=== PATIENT | female | born 1985 | race Caucasian/White ===

== ENCOUNTER 2018-05-27 07:25 | Emergency (ER) | payer SELFPAY ==
[~2018-05-27] VITALS: Ht 157.5 cm; Wt 68.0 kg
[2018-05-27 07:50] LABS: BILIRUBIN,URINE NEGATIVE (NEG); CLARITY,URINE CLEAR; COLOR,URINE YELLOW; NITRITE,URINE NEGATIVE (NEG); PH,URINE 5.5; PROTEIN,URINE NEGATIVE (NEG-TRACE); UROBILINOGEN,URINE 0.2 mg/dL (0.2 mg/dL)
[2018-05-27 07:56] LABS: SQUAMOUS EPITHELIAL CELL,UR FEW /LPF
[2018-05-27 07:57] LABS: BACTERIA,URINE FEW /HPF (0-FEW); WBC,URINE OCC /HPF (0-4)
[2018-05-27 07:58] LABS: BASO # 0.1 x10^3/uL (0.0-0.2); BASO % 0 % (0-3); EOS % 0 % (0-3); HEMATOCRIT 41.3 % (36.0-47.0); HEMOGLOBIN 14.4 g/dL (12.0-15.5); LYMPH # 1.9 x10^3/uL (1.0-4.8); LYMPH % 17 % (24-48); MEAN CORPUSCULAR HEMOGLOBIN 31 pg (25-35); MEAN CORPUSCULAR HGB CONC 35 g/dL (31-37); MEAN CORPUSCULAR VOLUME 89 fL (79-100); MONO # 0.4 x10^3/uL (0.0-1.1); MONO % 4 % (0-9); NEUT # 9.2 x10^3uL (1.8-7.7); NEUT % 79 % (31-73); PLATELET COUNT 211 x10^3/uL (140-400); RED BLOOD COUNT 4.63 x10^6/uL (3.50-5.40); RED CELL DISTRIBUTION WIDTH 13.2 % (11.5-14.5); WHITE BLOOD COUNT 11.7 x10^3/uL (4.0-11.0)
[2018-05-27 08:19] LABS: PREG TEST PT QUAL NEGATIVE (NEG)
--- NOTE | 2018-05-27 08:19 | PHYS DOC ---
Past Medical History Past Medical History: Anxiety, Other Additional Past Medical Histor: HPV, interstitial bladder,METHADONE [place] Past Surgical History: Hysterectomy, Tubal ligation Additional Past Surgical Histo: Laparascopy Alcohol Use: Rarely Drug Use: None Adult General Chief Complaint Chief Complaint: ABDOMINAL PAIN HPI HPI 32-year-old female presenting the emergency room today with upper abdominal pain that is nonradiating. It is sharp moderate nonmigratory. It started around 2 AM. Prior to this she was feeling normal. It is associated with nausea without vomiting. She took Gas-X without any relief. Last bowel movement was yesterday. She reports flatus. She has a history of a partial hysterectomy. Review of systems is negative for chest pain shortness of breath vomiting. She denies fevers or chills. All other review of systems is negative unless otherwise noted in history of present illness. ED course: 32-year-old female presenting with upper abdominal pain. Vitals are unremarkable. Afebrile with normal heart rate. Well-appearing on examination. Abdomen is soft nontender nondistended. Negative McBurney's point. Negative Quiñonez sign. The remainder the examination is unremarkable. Blood work sent along with CT abdomen pelvis ordered. Blood work unremarkable. CT of the abdomen pelvis is negative. On reexamination her abdomen is soft and nontender. Negative McBurney's point. We'll discharge patient for repeat abdominal exam tomorrow with her PCP.The patient has been examined and was not found to have an emergency medical condition. The patient was then discharged home in stable condition to follow up with their primary care physician over the next 2-3 days. They were to return if their symptoms worsened or if they were concerned for any reason. They were also instructed to return to the emergency department if they were unable to get the recommended and appropriate follow- up. [id number] discharge instructions and return precautions were given. Patient's questions were answered to their satisfaction. Patient is comfortable with plan. Review of Systems Review of Systems SEE ABOVE. Current Medications Current Medications Current Medications Medications (Trade) Dose Ordered Sig/Danny Start Time Stop Time Status Last Admin Dose Admin Fentanyl Citrate (Fentanyl 2ml Vial) 50 mcg PRN Q30MIN PRN 05/27/18 08:45 05/27/18 09:10 50 MCG Info (CONTRAST GIVEN -- Rx MONITORING) 1 each PRN DAILY PRN 05/27/18 08:45 05/29/18 08:44 Iohexol (Omnipaque 300 Mg/ml) 75 ml 1X ONCE 05/27/18 08:30 05/27/18 08:31 DC 05/27/18 08:56 75 ML Ondansetron HCl (Zofran) 4 mg 1X ONCE 05/27/18 09:00 05/27/18 09:01 DC 05/27/18 09:10 4 MG Sodium Chloride 1,000 ml @ 1,000 mls/hr Q1H 05/27/18 08:43 05/27/18 09:42 05/27/18 09:09 1,000 MLS/HR Allergies Allergies Allergies Coded Allergies Type Severity Reaction Last Updated Verified No Known Drug Allergies 05/27/18 No Physical Exam Physical Exam SEE ABOVE Constitutional: Well developed, well nourished, no acute distress, non-toxic appearance. [] HENT: Normocephalic, atraumatic, bilateral external ears normal, oropharynx moist, no oral exudates, nose normal. [] Eyes: PERRLA, EOMI, conjunctiva normal, no discharge. [] Neck: Normal range of motion, no tenderness, supple, no stridor. [] Cardiovascular:Heart rate regular rhythm, no murmur [] Lungs & Thorax: Bilateral breath sounds clear to auscultation [] Abdomen: Bowel sounds normal, soft, no tenderness, no masses, no pulsatile masses. [] Skin: Warm, dry, no erythema, no rash. [] Back: No tenderness, no CVA tenderness. [] Extremities: No tenderness, no cyanosis, no clubbing, ROM intact, no edema. [] Neurologic: Alert and oriented X 3, normal motor function, normal sensory function, no focal deficits noted. [] Psychologic: Affect normal, judgement normal, mood normal. [] Current Patient Data Vital Signs Vital Signs Date Time Temp Pulse Resp B/P (MAP) Pulse Ox O2 Delivery O2 Flow Rate FiO2 05/27/18 07:30 98.6 77 18 121/78 (92) 99 Room Air 98.6 Lab Values Laboratory Tests Test 05/27/18 07:35 05/27/18 07:45 Urine Collection Type Void Urine Color Yellow Urine Clarity Clear Urine pH 5.5 Urine Specific [place] 1.025 Urine Protein Negative mg/dL (NEG-TRACE) Urine Glucose (UA) Negative mg/dL (NEG) Urine Ketones (Stick) Negative mg/dL (NEG) Urine Blood Small (NEG) Urine Nitrite Negative (NEG) Urine Bilirubin Negative (NEG) Urine Urobilinogen Dipstick 0.2 mg/dL (0.2 mg/dL) Urine Leukocyte Esterase Negative (NEG) Urine RBC 3-5 /HPF (0-2) Urine WBC Occ /HPF (0-4) Urine Squamous Epithelial Cells Few /LPF Urine Bacteria Few /HPF (0-FEW) Urine Mucus Mod /LPF White Blood Count 11.7 x10^3/uL (4.0-11.0) H Red Blood Count 4.63 x10^6/uL (3.50-5.40) Hemoglobin 14.4 g/dL (12.0-15.5) Hematocrit 41.3 % (36.0-47.0) Mean Corpuscular Volume 89 fL (79-100) Mean Corpuscular Hemoglobin 31 pg (25-35) Mean Corpuscular Hemoglobin Concent 35 g/dL (31-37) Red Cell Distribution Width 13.2 % (11.5-14.5) Platelet Count 211 x10^3/uL (140-400) Neutrophils (%) (Auto) 79 % (31-73) H Lymphocytes (%) (Auto) 17 % (24-48) L Monocytes (%) (Auto) 4 % (0-9) Eosinophils (%) (Auto) 0 % (0-3) Basophils (%) (Auto) 0 % (0-3) Neutrophils # (Auto) 9.2 x10^3uL (1.8-7.7) H Lymphocytes # (Auto) 1.9 x10^3/uL (1.0-4.8) Monocytes # (Auto) 0.4 x10^3/uL (0.0-1.1) Eosinophils # (Auto) 0.0 x10^3/uL (0.0-0.7) Basophils # (Auto) 0.1 x10^3/uL (0.0-0.2) Sodium Level 138 mmol/L (136-145) Potassium Level 4.3 mmol/L (3.5-5.1) Chloride Level 105 mmol/L (98-107) Carbon Dioxide Level 25 mmol/L (21-32) Anion Gap 8 (6-14) Blood Urea Nitrogen 24 mg/dL (7-20) H Creatinine 0.9 mg/dL (0.6-1.0) Estimated GFR (Cockcroft-Gault) 72.1 BUN/Creatinine Ratio 27 (6-20) H Glucose Level 113 mg/dL (70-99) H Calcium Level 8.8 mg/dL (8.5-10.1) Total Bilirubin 0.2 mg/dL (0.2-1.0) Aspartate Amino Transferase (AST) 13 U/L (15-37) L Alanine Aminotransferase (ALT) 25 U/L (14-59) Alkaline Phosphatase 90 U/L (46-116) Total Protein 7.5 g/dL (6.4-8.2) Albumin 3.8 g/dL (3.4-5.0) Albumin/Globulin Ratio 1.0 (1.0-1.7) Lipase 144 U/L (73-393) Serum Test, Qualitative Negative (NEG) Laboratory Tests 05/27/18 07:45 Laboratory Tests 05/27/18 07:45 EKG EKG [] Radiology/Procedures Radiology/Procedures [] Course & Med Decision Making Course & Med Decision Making Pertinent Labs and Imaging studies reviewed. (See chart for details) [] Dragon Disclaimer Dragon Disclaimer This electronic medical record was generated, in whole or in part, using a voice recognition dictation system. Departure Departure Impression: Primary Impression: Abdominal pain Disposition: HOME, SELF-CARE Condition: IMPROVED Referrals: MARITZA DYKES MD (PCP) Patient Instructions: Abdominal Pain, Women Additional Instructions: Thank you for allowing us to participate in your care today. Return to the emergency department you have any new or worsening symptoms, or if you are concerned for any reason. Return to emergency department if you have any new or concerning symptoms including but not limited to fever, chills, nausea, vomiting, intractable pain, any new rashes, chest pain, shortness of air , uncontrolled bleeding, difficulty breathing, and/or vision loss. Follow up with your primary care physician within 3 days. Call your Primary Doctor tomorrow and inform them of your visit today. If you do not have a primary care provider we are happy to provide you with a list of our primary care providers contact information. This condition should be evaluated by your primary care physician and any recommended consulting services for continued management within 2-3 days after discharge. If at any time, you are having difficulty getting into your primary care doctor or a specialist, return to the emergency department. Scripts No Active Prescriptions or Reported Meds CASSIUS GAO MD May 27, 2018 08:18
[2018-05-27 08:28] LABS: CALCIUM 8.8 mg/dL (8.5-10.1); CREATININE 0.9 mg/dL (0.6-1.0); GFR 72.1; POTASSIUM 4.3 mmol/L (3.5-5.1)
[2018-05-27] MEDS ORDERED: IOHEXOL 300 MG/ML 100ML VIAL. IV ONE (08:30)
[2018-05-27 08:34] LABS: ALBUMIN 3.8 g/dL (3.4-5.0); TOTAL BILIRUBIN 0.2 mg/dL (0.2-1.0); TOTAL PROTEIN 7.5 g/dL (6.4-8.2)
[2018-05-27] MEDS ORDERED: IV NORMAL SALINE 1000ML BAG 1,000 ML IV SCH (08:43)
[2018-05-27] MEDS ORDERED: fentaNYL PF VIAL 100 MCG/2 ML VIAL IV PRN (08:45)
[2018-05-27] MEDS ORDERED: CONTRAST GIVEN. MC PRN (08:45)
[2018-05-27] MEDS ORDERED: ONDANSETRON PF 4 MG/2 ML VIAL. IV ONE (09:00)
--- NOTE | 2018-05-27 09:16 | RAD ---
CT of the abdomen and pelvis with contrast, 05/27/2018: HISTORY: Upper abdominal pain and nausea Multidetector CT imaging was performed following an IV bolus injection of iodinated contrast material. No oral contrast material was administered for this study. No hepatic abnormality is detected. The gallbladder is elongated measuring 15 cm in craniocaudad extent. It measures 3.5 cm in greatest width and AP dimension. No dense gallstones or pericholecystic edema is seen. The pancreas is unremarkable. The spleen is of normal size. No renal abnormality is detected. No abdominal or pelvic adenopathy is seen. The uterus is surgically absent. The bowel loops are not dilated. A portion of the appendix is visualized and it is unremarkable. No pericecal inflammatory process is seen. No free air or free fluid is evident in the abdomen or pelvis. IMPRESSION: No acute abdominal or pelvic abnormality is detected. PQRS Compliance Statement: One or more of the following individualized dose reduction techniques were utilized for this examination: 1. Automated exposure control 2. Adjustment of the mA and/or kV according to patient size 3. Use of iterative reconstruction technique Electronically signed by: Nick Amaya MD (05/27/2018 9:12 AM) [facility]
[2018-05-27 09:45] VITALS: BP 131/82
== END 2018-05-27 10:13 | disposition home or self-care (01) ==
LOC: ER 07:25
DX: R10.10 Upper abdominal pain, unspecified (principal); R11.0 Nausea; F41.9 Anxiety disorder, unspecified; Z90.710 Acquired absence of both cervix and uterus; Z98.51 Tubal ligation status
CPT/HCPCS: 36415; 74177; 80053; 81001; 83690; 84703; 85025; 96374; 96375; 99284; J2405; J3010; J7030; Q9967

== ENCOUNTER 2018-09-12 19:55 | Emergency (ER) | payer OTHER ==
[~2018-09-12] VITALS: Ht 157.5 cm; Wt 68.0 kg
[2018-09-12 19:55] VITALS: BP 105/59
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
[2018-09-12] MEDS ORDERED: ALPRAZolam 0.5 MG TABLET ONE (21:03)
[2018-09-12] MEDS ORDERED: ALPRAZolam 0.5 MG TABLET PO ONE (21:15)
== END 2018-09-12 21:08 | disposition home or self-care (01) ==
LOC: EEVIPCON 19:55 → ER 19:55
DX: T74.21XA Adult sexual abuse, confirmed, initial encounter (principal); S60.411A Abrasion of left index finger, initial encounter; F41.9 Anxiety disorder, unspecified; Z90.710 Acquired absence of both cervix and uterus; Z98.51 Tubal ligation status; Y93.89 Activity, other specified; Y92.89 Other specified places as the place of occurrence of the external cause; Y99.8 Other external cause status
CPT/HCPCS: 99282; 99285

== ENCOUNTER 2018-10-18 05:42 | Inpatient (IN) | payer SELFPAY ==
[2018-10-18] VITALS (9 sets, daily range): BP systolic 93–126; BP diastolic 57–78
[~2018-10-18] VITALS: Ht 165.1 cm; Wt 68.0 kg
--- NOTE | 2018-10-18 06:26 | PHYS DOC ---
Past Medical History Past Medical History: Anxiety, Other Additional Past Medical Histor: HPV, interstitial bladder,METHADONE [place] Past Surgical History: Hysterectomy, Tubal ligation Additional Past Surgical Histo: Laparascopy Smoking: Cigarettes Alcohol Use: Rarely Drug Use: None Adult General Chief Complaint Chief Complaint: ABDOMINAL PAIN HPI HPI Patient is a 33 year old female in who brought in by EMS because of abdominal pain. Patient states she woke at 3 AM because of right sided abdominal pain as a sharp pain with radiation to upper chest and back. Patient rated her pain 10 over 10 and denies nausea and vomiting, diarrhea and constipation, fever and chills, urinary symptom. Patient states she had the same pain in other locations and was evaluated in this emergency room and was told she had gallbladder problems and needs to to follow-up with her primary care physician who treated her with hydrocodone. Patient had hysterectomy. Review of Systems Review of Systems Constitutional: Denies fever or chills [] Eyes: Denies change in visual acuity, redness, or eye pain [] HENT: Denies nasal congestion or sore throat [] Respiratory: Denies cough or shortness of breath [] Cardiovascular: No additional information not addressed in HPI [] GI: Reports abdominal pain, denies nausea, vomiting, bloody stools or diarrhea [ ] : Denies dysuria or hematuria [] Musculoskeletal: Denies back pain or joint pain [] Integument: Denies rash or skin lesions [] Neurologic: Denies headache, focal weakness or sensory changes [] Endocrine: Denies polyuria or polydipsia [] All other systems were reviewed and found to be within normal limits, except as documented in this note. Current Medications Current Medications Allergies Allergies Allergies Coded Allergies Type Severity Reaction Last Updated Verified No Known Drug Allergies 05/27/18 No Physical Exam Physical Exam Constitutional: Well nourished, moderate distress, non-toxic appearance. [] HENT: Normocephalic, atraumatic, oropharynx moist. Eyes: PERRLA, EOMI, conjunctiva normal, no discharge. [] Neck: Normal range of motion, no tenderness, supple, no stridor. [] Cardiovascular:Heart rate regular rhythm, no murmur [] Lungs & Thorax: Bilateral breath sounds clear to auscultation [] Abdomen: Bowel sounds normal, soft, positive Quiñonez's sign, negative McBurney sign, no tenderness, no masses, no pulsatile masses. [] Skin: Warm, dry, no erythema, no rash. [] Back: No tenderness, no CVA tenderness. [] Extremities: No tenderness, no cyanosis, no clubbing, ROM intact, no edema. [] Neurologic: Alert and oriented X 3, normal motor function, normal sensory function, no focal deficits noted. [] Psychologic: Affect anxious, judgement normal, mood normal. [] Current Patient Data Vital Signs Vital Signs Date Time Temp Pulse Resp B/P (MAP) Pulse Ox O2 Delivery O2 Flow Rate FiO2 10/18/18 06:30 54 18 128/86 (100) 99 Room Air 10/18/18 05:44 98.3 98.3 Lab Values Laboratory Tests Test 10/18/18 06:42 White Blood Count 7.9 x10^3/uL (4.0-11.0) Red Blood Count 4.14 x10^6/uL (3.50-5.40) Hemoglobin 12.5 g/dL (12.0-15.5) Hematocrit 37.5 % (36.0-47.0) Mean Corpuscular Volume 91 fL (79-100) Mean Corpuscular Hemoglobin 30 pg (25-35) Mean Corpuscular Hemoglobin Concent 33 g/dL (31-37) Red Cell Distribution Width 14.1 % (11.5-14.5) Platelet Count 172 x10^3/uL (140-400) Neutrophils (%) (Auto) 54 % (31-73) Lymphocytes (%) (Auto) 36 % (24-48) Monocytes (%) (Auto) 8 % (0-9) Eosinophils (%) (Auto) 1 % (0-3) Basophils (%) (Auto) 1 % (0-3) Neutrophils # (Auto) 4.3 x10^3uL (1.8-7.7) Lymphocytes # (Auto) 2.8 x10^3/uL (1.0-4.8) Monocytes # (Auto) 0.6 x10^3/uL (0.0-1.1) Eosinophils # (Auto) 0.1 x10^3/uL (0.0-0.7) Basophils # (Auto) 0.1 x10^3/uL (0.0-0.2) Sodium Level 146 mmol/L (136-145) H Potassium Level 3.4 mmol/L (3.5-5.1) L Chloride Level 109 mmol/L (98-107) H Carbon Dioxide Level 28 mmol/L (21-32) Anion Gap 9 (6-14) Blood Urea Nitrogen 13 mg/dL (7-20) Creatinine 0.6 mg/dL (0.6-1.0) Estimated GFR (Cockcroft-Gault) 114.4 BUN/Creatinine Ratio 22 (6-20) H Glucose Level 123 mg/dL (70-99) H Calcium Level 8.4 mg/dL (8.5-10.1) L Total Bilirubin 0.2 mg/dL (0.2-1.0) Aspartate Amino Transferase (AST) 21 U/L (15-37) Alanine Aminotransferase (ALT) 26 U/L (14-59) Alkaline Phosphatase 70 U/L (46-116) Total Protein 6.3 g/dL (6.4-8.2) L Albumin 3.4 g/dL (3.4-5.0) Albumin/Globulin Ratio 1.2 (1.0-1.7) Lipase 167 U/L (73-393) Ethyl Alcohol Level < 10 mg/dL (0-10) Laboratory Tests 10/18/18 06:42 Laboratory Tests 10/18/18 06:42 EKG EKG [] Radiology/Procedures Radiology/Procedures [facility] [address] [place] [address] IMAGING REPORT Signed PATIENT: TORY POLLACK ACCOUNT: [id number] : 1985 LOCATION: ER AGE: 33 SEX: F EXAM STATUS: REG ER ORD. PHYSICIAN: DIANA MONDRAGON MD REASON: upper abdominal pain PROCEDURE: ABDOMEN LTD Limited abdomen ultrasound HISTORY: Right upper quadrant abdominal pain. FINDINGS: Pancreas, upper abdominal aorta and IVC are normal. Normal liver echogenicity. No liver mass or nodularity documented. There are gallstones, mild distention of the gallbladder with a diameter 3.3 cm, gallbladder wall thickening measuring 4.5 mm in thickness, and positive sonographic Quiñonez sign consistent with cholecystitis. Mild dilation of the common bile duct with a diameter 7 mm, mild distention due to choledocholithiasis is not excluded. Right renal length 12.2 cm. No evidence of right renal mass or hydronephrosis. Spleen and left kidney were not evaluated. IMPRESSION: Imaging features suggestive of acute calculus cholecystitis. Mild distention of the common bile duct could indicate low-grade ductal obstruction, choledocholithiasis as an etiology of obstruction is possible. Electronically signed by: Jelly Hale MD (10/18/2018 6:45 AM) [facility] DICTATED and SIGNED BY: JELLY HALE MD DATE: 10/18/18 6336 Course & Med Decision Making Course & Med Decision Making Pertinent Labs and Imaging studies reviewed. (See chart for details) Evaluation of patient in ER showed 33-year-old female patient with complaining of right upper quadrant pain since 3 AM today as a constant and severe pain. Patient had positive Quiñonez's sign. Gallbladder ultrasound showed acute cholecystitis. Patient was seen in this emergency room in May 2018 with the same pain and had unremarkable CT of abdomen and pelvis. Patient treated with IV fluid, Toradol, fentanyl and Zofran and felt better. On-call surgeon Dr. Arellano was consulted at 0745 and recommended to keep patient NPO and start Zosyn. Patient requiring admission for further evaluation and treatment. Discussed with Dr. Bruce who is in agreement with admission. Discussed findings and plan with patient and family, who acknowledge understanding and agreement. Dragon Disclaimer Dragon Disclaimer This electronic medical record was generated, in whole or in part, using a voice recognition dictation system. Departure Departure Impression: Primary Impression: Acute cholecystitis Disposition: ADMITTED INPATIENT (at 0711) Admitting Physician: Other (Dr Bruce accepted admission at 0710) Condition: IMPROVED Referrals: MARITZA DYKES MD (PCP) Scripts No Active Prescriptions or Reported Meds DIANA MONDRAGON MD Oct 18, 2018 06:25
--- NOTE | 2018-10-18 06:48 | RAD ---
Limited abdomen ultrasound HISTORY: Right upper quadrant abdominal pain. FINDINGS: Pancreas, upper abdominal aorta and IVC are normal. Normal liver echogenicity. No liver mass or nodularity documented. There are gallstones, mild distention of the gallbladder with a diameter 3.3 cm, gallbladder wall thickening measuring 4.5 mm in thickness, and positive sonographic Quiñonez sign consistent with cholecystitis. Mild dilation of the common bile duct with a diameter 7 mm, mild distention due to choledocholithiasis is not excluded. Right renal length 12.2 cm. No evidence of right renal mass or hydronephrosis. Spleen and left kidney were not evaluated. IMPRESSION: Imaging features suggestive of acute calculus cholecystitis. Mild distention of the common bile duct could indicate low-grade ductal obstruction, choledocholithiasis as an etiology of obstruction is possible. Electronically signed by: Clayton Hale MD (10/18/2018 6:45 AM) [facility]
[2018-10-18 06:52] LABS: BASO # 0.1 x10^3/uL (0.0-0.2); BASO % 1 % (0-3); EOS # 0.1 x10^3/uL (0.0-0.7); EOS % 1 % (0-3); HEMATOCRIT 37.5 % (36.0-47.0); HEMOGLOBIN 12.5 g/dL (12.0-15.5); LYMPH # 2.8 x10^3/uL (1.0-4.8); LYMPH % 36 % (24-48); MEAN CORPUSCULAR HEMOGLOBIN 30 pg (25-35); MEAN CORPUSCULAR HGB CONC 33 g/dL (31-37); MEAN CORPUSCULAR VOLUME 91 fL (79-100); MONO # 0.6 x10^3/uL (0.0-1.1); MONO % 8 % (0-9); NEUT # 4.3 x10^3uL (1.8-7.7); NEUT % 54 % (31-73); PLATELET COUNT 172 x10^3/uL (140-400); RED BLOOD COUNT 4.14 x10^6/uL (3.50-5.40); RED CELL DISTRIBUTION WIDTH 14.1 % (11.5-14.5); WHITE BLOOD COUNT 7.9 x10^3/uL (4.0-11.0)
[2018-10-18] MEDS ORDERED: ONDANSETRON PF 4 MG/2 ML VIAL. IV ONE (07:00)
[2018-10-18] MEDS ORDERED: KETOROLAC 30 MG/ML VIAL. IV ONE (07:00)
[2018-10-18] MEDS ORDERED: fentaNYL PF VIAL 100 MCG/2 ML VIAL IV ONE (07:00)
[2018-10-18] MEDS ORDERED: IV NORMAL SALINE 1000ML BAG 1,000 ML IV SCH (07:00)
[2018-10-18 07:11] LABS: CALCIUM 8.4 mg/dL (8.5-10.1); CREATININE 0.6 mg/dL (0.6-1.0); GFR 114.4; POTASSIUM 3.4 mmol/L (3.5-5.1)
[2018-10-18 07:16] LABS: ALBUMIN 3.4 g/dL (3.4-5.0); ALBUMIN/GLOBULIN RATIO 1.2 (1.0-1.7); TOTAL BILIRUBIN 0.2 mg/dL (0.2-1.0); TOTAL PROTEIN 6.3 g/dL (6.4-8.2)
--- NOTE | 2018-10-18 07:26 | PDOC1 ---
History and Physical Date of Admission Date of Admission DATE: 10/18/18 TIME: 07:25 Identification/Chief Complaint Chief Complaint Abdominal Pain Source Source: Patient History of Present Illness History of Present Illness Patient is a 33 year old female in who brought in by EMS because of abdominal pain. Patient states she woke at 3 AM because of right sided abdominal pain as a sharp pain with radiation to upper chest and back. Patient rated her pain 10 over 10 and denies nausea and vomiting, diarrhea and constipation, fever and chills, urinary symptom. Patient states she had the same pain in other locations and was told she had gallbladder problems to follow-up with her primary care physician who treated her with hydrocodone. Patient had tubal ligation previously. K of 3.4 and elevated glucose noted. No leukocytosis, no recent travel, no problems with bleeding, clots or prior problems with anesthesia. Has 4 children at home Past Medical History Cardiovascular: No pertinent hx Pulmonary: No pertinent hx GI: No pertinent hx Heme/Onc: No pertinent hx Hepatobiliary: No pertinent hx Psych: No pertinent hx Rheumatologic: No pertinent hx Infectious disease: No pertinent hx ENT: No pertinent hx Renal/: No pertinent hx Endocrine: No pertinent hx Dermatology: No pertinent hx Past Surgical History Past Surgical History: Family History Family History: Hypertension Social History Smoke: No ALCOHOL: rare Drugs: None Current Medications Current Medications Current Medications Sodium Chloride 1,000 ml @ 1,000 mls/hr Q1H IV Last administered on 10/18/18at 06:46; Start 10/18/18 at 07:00; Stop 10/18/18 at 07:59 Ketorolac Tromethamine (Toradol 30mg Vial) 30 mg 1X ONCE IV Last administered on 10/18/18at 06:45; Start 10/18/18 at 07:00; Stop 10/18/18 at 07:01; Status DC Fentanyl Citrate (Fentanyl 2ml Vial) 50 mcg 1X ONCE IV Last administered on at 07:21; Start 10/18/18 at 07:00; Stop 10/18/18 at 07:01; Status DC Ondansetron HCl (Zofran) 4 mg 1X ONCE IV Last administered on 10/18/18at 07:17 ; Start 10/18/18 at 07:00; Stop 10/18/18 at 07:01; Status DC Active Scripts Active No Active Prescriptions or Reported Medications Allergies Allergies: Coded Allergies: No Known Drug Allergies (Unverified , 05/27/18) ROS General: YES: Fatigue, Malaise; No: Chills, Night Sweats, Appetite, Other PSYCHOLOGICAL ROS: No: Anxiety, Behavioral Disorder, Concentration difficultie , Decreased libido, Depression, Disorientation, Hallucinations, Hostility, Irritablity, Memory difficulties, Mood Swings, Obsessive thoughts, Physical abuse, Sexual abuse, Sleep disturbances, Suicidal ideation, Other Eyes: No Blurry vision, No Decreased vision, No Double vision, No Dry eyes, No Excessive tearing, No Eye Pain, No Itchy Eyes, No Loss of vision, No Photophobia , No Scotomata, No Uses contacts, No Uses glasses, No Other HEENT: No: Heacaches, Visual Changes, Hearing change, Nasal congestion, Nasal discharge, Oral lesions, Sinus pain, Sore Throat, Epistaxis, Sneezing, Snoring, Tinnitus, Vertigo, Vocal changes, Other ALLERGY AND IMMUNOLOGY: No: Hives, Insect Bite Sensitivity, Itchy/Watery Eyes, Nasal Congestion, Post Nasal Drip, Seasonal Allergies, Other Hematological and Lymphatic: No: Bleeding Problems, Blood Clots, Blood Transfusions, Brusing, Night Sweats, Pallor, Swollen Lymph Nodes, Other ENDOCRINE: No: Breast Changes, Galactorrhea, Hair Pattern Changes, Hot Flashes , Malaise/lethargy, Mood Swings, Palpitations, Polydipsia/polyuria, Skin Changes , Temperature Intolerance, Unexpected Weight Changes, Other Breast: No New/Changing Breast Lumps, No Nipple changes, No Nipple discharge, No Other Respiratory: No: Cough, Hemoptysis, Orthopnea, Pleuritic Pain, Shortness of breath, SOB with excertion, Sputum Changes, Stridor, Tachypnea, Wheezing, Other Cardiovascular: No Chest Pain, No Palpitations, No Orthopnea, No Paroxysmal Noc. Dyspnea, No Edema, No Lt Headedness, No Other Gastrointestinal: No Nausea, No Vomiting, No Abdominal Pain, No Diarrhea, No Constipation, No Melena, No Hematochezia, No Other Genitourinary: No Dysuria, No Frequency, No Incontinence, No Hematuria, No Retention, No Discharge, No Urgency, No Pain, No Flank Pain, No Other, No , No , No , No , No , No , No Musculoskeletal: No Gait Disturbance, No Joint Pain, No Joint Stiffness, No Joint Swelling, No Muscle Pain, No Muscular Weakness, No Pain In:, No Swelling In:, No Other Neurological: No Behavorial Changes, No Bowel/Bladder ControlChng, No Confusion , No Dizziness, No Gait Disturbance, No Headaches, No Impaired Coord/balance, No Memory Loss, No Numbness/Tingling, No Seizures, No Speech Problems, No Tremors, No Visual Changes, No Weakness, No Other Skin: No Dry Skin, No Eczema, No Hair Changes, No Lumps, No Mole Changes, No Mottling, No Nail Changes, No Pruritus, No Rash, No Skin Lesion Changes, No Other, No Acne Physical Exam General: Alert, Oriented X3, Cooperative, No acute distress HEENT: Atraumatic, PERRLA, EOMI, Mucous membr. moist/pink Lungs: Clear to auscultation, Normal air movement Heart: S1S2, RRR, no gallops, no murmurs Abdomen: Normal bowel sounds, Soft, No hepatosplenomegaly, No masses, Other ( RUQ tender) Extremities: No clubbing, No cyanosis, No edema, Normal pulses, No tenderness/ swelling Skin: No rashes, No breakdown, No significant lesion Neuro: Normal gait, Normal speech, Strength at 5/5 X4 ext, Normal tone, Sensation intact, Cranial nerves 3-12 NL, Reflexes 2+ Psych/Mental Status: Mental status NL, Mood NL Vitals Vitals Vital Signs Date Time Temp Pulse Resp B/P (MAP) Pulse Ox O2 Delivery O2 Flow Rate FiO2 10/18/18 07:21 18 100 Room Air 10/18/18 05:44 98.3 58 136/77 (96) 98.3 Labs Labs Laboratory Tests Test 10/18/18 06:42 White Blood Count 7.9 x10^3/uL (4.0-11.0) Red Blood Count 4.14 x10^6/uL (3.50-5.40) Hemoglobin 12.5 g/dL (12.0-15.5) Hematocrit 37.5 % (36.0-47.0) Mean Corpuscular Volume 91 fL (79-100) Mean Corpuscular Hemoglobin 30 pg (25-35) Mean Corpuscular Hemoglobin Concent 33 g/dL (31-37) Red Cell Distribution Width 14.1 % (11.5-14.5) Platelet Count 172 x10^3/uL (140-400) Neutrophils (%) (Auto) 54 % (31-73) Lymphocytes (%) (Auto) 36 % (24-48) Monocytes (%) (Auto) 8 % (0-9) Eosinophils (%) (Auto) 1 % (0-3) Basophils (%) (Auto) 1 % (0-3) Neutrophils # (Auto) 4.3 x10^3uL (1.8-7.7) Lymphocytes # (Auto) 2.8 x10^3/uL (1.0-4.8) Monocytes # (Auto) 0.6 x10^3/uL (0.0-1.1) Eosinophils # (Auto) 0.1 x10^3/uL (0.0-0.7) Basophils # (Auto) 0.1 x10^3/uL (0.0-0.2) Sodium Level 146 mmol/L (136-145) Potassium Level 3.4 mmol/L (3.5-5.1) Chloride Level 109 mmol/L (98-107) Carbon Dioxide Level 28 mmol/L (21-32) Anion Gap 9 (6-14) Blood Urea Nitrogen 13 mg/dL (7-20) Creatinine 0.6 mg/dL (0.6-1.0) Estimated GFR (Cockcroft-Gault) 114.4 BUN/Creatinine Ratio 22 (6-20) Glucose Level 123 mg/dL (70-99) Calcium Level 8.4 mg/dL (8.5-10.1) Total Bilirubin 0.2 mg/dL (0.2-1.0) Aspartate Amino Transf (AST/SGOT) 21 U/L (15-37) Alanine Aminotransferase (ALT/SGPT) 26 U/L (14-59) Alkaline Phosphatase 70 U/L (46-116) Total Protein 6.3 g/dL (6.4-8.2) Albumin 3.4 g/dL (3.4-5.0) Albumin/Globulin Ratio 1.2 (1.0-1.7) Lipase 167 U/L (73-393) Ethyl Alcohol Level < 10 mg/dL (0-10) Laboratory Tests Test 10/18/18 06:42 White Blood Count 7.9 x10^3/uL (4.0-11.0) Red Blood Count 4.14 x10^6/uL (3.50-5.40) Hemoglobin 12.5 g/dL (12.0-15.5) Hematocrit 37.5 % (36.0-47.0) Mean Corpuscular Volume 91 fL (79-100) Mean Corpuscular Hemoglobin 30 pg (25-35) Mean Corpuscular Hemoglobin Concent 33 g/dL (31-37) Red Cell Distribution Width 14.1 % (11.5-14.5) Platelet Count 172 x10^3/uL (140-400) Neutrophils (%) (Auto) 54 % (31-73) Lymphocytes (%) (Auto) 36 % (24-48) Monocytes (%) (Auto) 8 % (0-9) Eosinophils (%) (Auto) 1 % (0-3) Basophils (%) (Auto) 1 % (0-3) Neutrophils # (Auto) 4.3 x10^3uL (1.8-7.7) Lymphocytes # (Auto) 2.8 x10^3/uL (1.0-4.8) Monocytes # (Auto) 0.6 x10^3/uL (0.0-1.1) Eosinophils # (Auto) 0.1 x10^3/uL (0.0-0.7) Basophils # (Auto) 0.1 x10^3/uL (0.0-0.2) Sodium Level 146 mmol/L (136-145) Potassium Level 3.4 mmol/L (3.5-5.1) Chloride Level 109 mmol/L (98-107) Carbon Dioxide Level 28 mmol/L (21-32) Anion Gap 9 (6-14) Blood Urea Nitrogen 13 mg/dL (7-20) Creatinine 0.6 mg/dL (0.6-1.0) Estimated GFR (Cockcroft-Gault) 114.4 BUN/Creatinine Ratio 22 (6-20) Glucose Level 123 mg/dL (70-99) Calcium Level 8.4 mg/dL (8.5-10.1) Total Bilirubin 0.2 mg/dL (0.2-1.0) Aspartate Amino Transf (AST/SGOT) 21 U/L (15-37) Alanine Aminotransferase (ALT/SGPT) 26 U/L (14-59) Alkaline Phosphatase 70 U/L (46-116) Total Protein 6.3 g/dL (6.4-8.2) Albumin 3.4 g/dL (3.4-5.0) Albumin/Globulin Ratio 1.2 (1.0-1.7) Lipase 167 U/L (73-393) Ethyl Alcohol Level < 10 mg/dL (0-10) Images Images RUQ US - Imaging features suggestive of acute calculus cholecystitis. Mild distention of the common bile duct could indicate low-grade ductal obstruction, choledocholithiasis as an etiology of obstruction is possible. VTE Prophylaxis Ordered VTE Prophylaxis Devices: Yes VTE Pharmacological Prophylaxi: No Assessment/Plan Assessment/Plan A/P: RUQ pain - likely cholecystitis confirmed on US. Zosyn x1, and no further testing prior to surgery. Surgery aware, likely to OR today Hypokalemia - will replace IV FEN - NPO PPX - SCDs FULL CODE Inpatient for acute cholecystitis. No further testing for low cardiac risk for surgery today SHARONA RAYMUNDO MD Oct 18, 2018 07:26
[2018-10-18] MEDS ORDERED: ROCURONIUM 50 MG/5 ML VIAL. ONE (08:01)
[2018-10-18] MEDS ORDERED: PROPOFOL 20 ML IV ONE (08:01)
[2018-10-18] MEDS ORDERED: fentaNYL PF VIAL 100 MCG/2 ML VIAL ONE ×2 (08:01→08:44)
[2018-10-18] MEDS ORDERED: LIDOCAINE 2% PF 5 ML VIAL. ONE (08:01)
--- NOTE | 2018-10-18 08:03 | PDOC2 ---
CESAR GUY MEAT GRINDER 10/18/18 0803: CONSULT Date of Consult Date of Consult DATE: 10/18/18 TIME: 07:59 Reason for Consult Reason for Consult: cholecystitis Referring Physician Referring Physician: ER Identification/Chief Complaint Chief Complaint abdominal pain Source Source: Chart review, Patient History of Present Illness Reason for Visit: Admitted with acute abdominal pain that started at 3 am. This occurred before in May, was questionable at that time if gallbladder source. Associated nausea. No constipation or diarrhea. Pain is located RUQ and radiates to back. Had cheese last night before bed Past Medical History Past Medical History endometriosis Musculoskeletal: low back pain Past Surgical History Past Surgical History: Tubal Ligation, Hysterectomy Family History Family History: Other (noncontributory to current illness ) Social History <1 pack per day ALCOHOL: other (2 drinks/week) Drugs: None Lives: Alone Current Medications Current Medications Current Medications Sodium Chloride 1,000 ml @ 1,000 mls/hr Q1H IV Last administered on 10/18/18at 06:46; Start 10/18/18 at 07:00; Stop 10/18/18 at 07:59 Ketorolac Tromethamine (Toradol 30mg Vial) 30 mg 1X ONCE IV Last administered on 10/18/18at 06:45; Start 10/18/18 at 07:00; Stop 10/18/18 at 07:01; Status DC Fentanyl Citrate (Fentanyl 2ml Vial) 50 mcg 1X ONCE IV Last administered on at 07:21; Start 10/18/18 at 07:00; Stop 10/18/18 at 07:01; Status DC Ondansetron HCl (Zofran) 4 mg 1X ONCE IV Last administered on 10/18/18at 07:17 ; Start 10/18/18 at 07:00; Stop 10/18/18 at 07:01; Status DC Piperacillin Sod/ Tazobactam Sod 3.375 gm/Sodium Chloride 50 ml @ 100 mls/hr Q6H IV ; Start 10/18/18 at 08:00 Sodium Chloride 1,000 ml @ 150 mls/hr Q6H40M IV ; Start 10/18/18 at 07:46; Stop 10/19/18 at 07:45 Active Scripts Active No Active Prescriptions or Reported Medications Allergies Allergies: Coded Allergies: No Known Drug Allergies (Unverified , 05/27/18) ROS General: No: Chills, Other (fevers) PSYCHOLOGICAL ROS: No: Anxiety, Depression Eyes: No Blurry vision, No Double vision HEENT: No: Heacaches, Sore Throat Hematological and Lymphatic: No: Bleeding Problems, Blood Clots Respiratory: No: Cough, Shortness of breath Cardiovascular: No Chest Pain, No Palpitations Gastrointestinal: Yes Other (see hpi) Genitourinary: No Dysuria, No Retention Musculoskeletal: No Joint Pain, No Muscle Pain Neurological: No Confusion, No Numbness/Tingling Skin: No Pruritus, No Rash Physical Exam General: Alert, Oriented X3, Cooperative, No acute distress HEENT: PERRLA, Mucous membr. moist/pink Lungs: Clear to auscultation, Normal air movement Heart: Regular rate, Normal S1, Normal S2, No murmurs Abdomen: Soft, Other (RUQ and epigastric TTP ) Extremities: No clubbing, No cyanosis Skin: No rashes, No breakdown Neuro: Normal gait, Normal speech Psych/Mental Status: Mental status NL, Mood NL MUSCULOSKELETAL: No deformity, No swelling Vitals VITALS Vital Signs Date Time Temp Pulse Resp B/P (MAP) Pulse Ox O2 Delivery O2 Flow Rate FiO2 10/18/18 07:30 72 18 125/77 (93) 100 Room Air 10/18/18 05:44 98.3 98.3 Labs Labs Laboratory Tests Test 10/18/18 06:42 White Blood Count 7.9 x10^3/uL (4.0-11.0) Red Blood Count 4.14 x10^6/uL (3.50-5.40) Hemoglobin 12.5 g/dL (12.0-15.5) Hematocrit 37.5 % (36.0-47.0) Mean Corpuscular Volume 91 fL (79-100) Mean Corpuscular Hemoglobin 30 pg (25-35) Mean Corpuscular Hemoglobin Concent 33 g/dL (31-37) Red Cell Distribution Width 14.1 % (11.5-14.5) Platelet Count 172 x10^3/uL (140-400) Neutrophils (%) (Auto) 54 % (31-73) Lymphocytes (%) (Auto) 36 % (24-48) Monocytes (%) (Auto) 8 % (0-9) Eosinophils (%) (Auto) 1 % (0-3) Basophils (%) (Auto) 1 % (0-3) Neutrophils # (Auto) 4.3 x10^3uL (1.8-7.7) Lymphocytes # (Auto) 2.8 x10^3/uL (1.0-4.8) Monocytes # (Auto) 0.6 x10^3/uL (0.0-1.1) Eosinophils # (Auto) 0.1 x10^3/uL (0.0-0.7) Basophils # (Auto) 0.1 x10^3/uL (0.0-0.2) Sodium Level 146 mmol/L (136-145) Potassium Level 3.4 mmol/L (3.5-5.1) Chloride Level 109 mmol/L (98-107) Carbon Dioxide Level 28 mmol/L (21-32) Anion Gap 9 (6-14) Blood Urea Nitrogen 13 mg/dL (7-20) Creatinine 0.6 mg/dL (0.6-1.0) Estimated GFR (Cockcroft-Gault) 114.4 BUN/Creatinine Ratio 22 (6-20) Glucose Level 123 mg/dL (70-99) Calcium Level 8.4 mg/dL (8.5-10.1) Total Bilirubin 0.2 mg/dL (0.2-1.0) Aspartate Amino Transf (AST/SGOT) 21 U/L (15-37) Alanine Aminotransferase (ALT/SGPT) 26 U/L (14-59) Alkaline Phosphatase 70 U/L (46-116) Total Protein 6.3 g/dL (6.4-8.2) Albumin 3.4 g/dL (3.4-5.0) Albumin/Globulin Ratio 1.2 (1.0-1.7) Lipase 167 U/L (73-393) Ethyl Alcohol Level < 10 mg/dL (0-10) Laboratory Tests Test 10/18/18 06:42 White Blood Count 7.9 x10^3/uL (4.0-11.0) Red Blood Count 4.14 x10^6/uL (3.50-5.40) Hemoglobin 12.5 g/dL (12.0-15.5) Hematocrit 37.5 % (36.0-47.0) Mean Corpuscular Volume 91 fL (79-100) Mean Corpuscular Hemoglobin 30 pg (25-35) Mean Corpuscular Hemoglobin Concent 33 g/dL (31-37) Red Cell Distribution Width 14.1 % (11.5-14.5) Platelet Count 172 x10^3/uL (140-400) Neutrophils (%) (Auto) 54 % (31-73) Lymphocytes (%) (Auto) 36 % (24-48) Monocytes (%) (Auto) 8 % (0-9) Eosinophils (%) (Auto) 1 % (0-3) Basophils (%) (Auto) 1 % (0-3) Neutrophils # (Auto) 4.3 x10^3uL (1.8-7.7) Lymphocytes # (Auto) 2.8 x10^3/uL (1.0-4.8) Monocytes # (Auto) 0.6 x10^3/uL (0.0-1.1) Eosinophils # (Auto) 0.1 x10^3/uL (0.0-0.7) Basophils # (Auto) 0.1 x10^3/uL (0.0-0.2) Sodium Level 146 mmol/L (136-145) Potassium Level 3.4 mmol/L (3.5-5.1) Chloride Level 109 mmol/L (98-107) Carbon Dioxide Level 28 mmol/L (21-32) Anion Gap 9 (6-14) Blood Urea Nitrogen 13 mg/dL (7-20) Creatinine 0.6 mg/dL (0.6-1.0) Estimated GFR (Cockcroft-Gault) 114.4 BUN/Creatinine Ratio 22 (6-20) Glucose Level 123 mg/dL (70-99) Calcium Level 8.4 mg/dL (8.5-10.1) Total Bilirubin 0.2 mg/dL (0.2-1.0) Aspartate Amino Transf (AST/SGOT) 21 U/L (15-37) Alanine Aminotransferase (ALT/SGPT) 26 U/L (14-59) Alkaline Phosphatase 70 U/L (46-116) Total Protein 6.3 g/dL (6.4-8.2) Albumin 3.4 g/dL (3.4-5.0) Albumin/Globulin Ratio 1.2 (1.0-1.7) Lipase 167 U/L (73-393) Ethyl Alcohol Level < 10 mg/dL (0-10) Assessment/Plan Assessment/Plan cholecystitis plan lap siola today ELINOR CSAEY MD 10/18/18 0932: CONSULT Assessment/Plan Assessment/Plan Above reviewed, patient seen and examined by myself. The patient is a 33-year- old female who presented with an episode of abdominal pain. The pain was located in the right upper quadrant with radiation to the chest and back. She reported some associated nausea as well. She had a similar episode of this in May and evaluated by her primary care doctor. Her evaluation in the ER included a sonogram which was consistent with acute cholecystitis. PMH/PSH/ROS/ SH as above; exam: alert, oriented, cooperative, no neck masses, lungs clear, heart RR and R, abdomen soft, tender with palpation in RUQ, ext neg for edema, no deformity; Sonogram reviewed; A/P) Acute cholecystitis, recommend lap soila, the details and risks of surgery were discussed with the patient. She understands and would like to proceed. CESAR GUY APRN Oct 18, 2018 08:03 ELINOR CASEY MD Oct 18, 2018 09:32
[2018-10-18] MEDS ORDERED: BUPIVAC MPF-EPI 0.5%-1:200000 30 ML VIAL. ONE (08:25)
[2018-10-18] MEDS ORDERED: IOHEXOL 300 MG/ML 100ML VIAL. ONE (08:25)
[2018-10-18] MEDS ORDERED: SURGICEL HEMOSTAT 4X8 EACH. ONE (08:25)
[2018-10-18] MEDS ORDERED: IV RINGERS,LACTATED 1000ML 1,000 ML IV SCH (08:35)
[2018-10-18] MEDS ORDERED: HYDROmorphone 2 MG/ML VIAL IV PRN (08:45)
[2018-10-18] MEDS ORDERED: ONDANSETRON PF 4 MG/2 ML VIAL. IV PRN (08:45)
[2018-10-18] MEDS ORDERED: fentaNYL PF VIAL 100 MCG/2 ML VIAL IV PRN (08:45)
[2018-10-18] MEDS ORDERED: PROCHLORPERAZINE 10 MG/2 ML VIAL. IV PRN (08:45)
[2018-10-18] MEDS ORDERED: LIDOCAINE 1% PF 2 ML VIAL. ID PRN (08:45)
[2018-10-18] MEDS: fentaNYL PF VIAL 100 MCG/2 ML VIAL IV PRN ×3 (08:47→11:28)
[2018-10-18] MEDS ORDERED: DESFLURANE 31 TO 60 MINUTES IH ONE (09:50)
[2018-10-18] MEDS ORDERED: DEXAMETHASONE SOD PHOS 20 MG/5 ML VIAL. ONE (09:50)
[2018-10-18] MEDS: PIPERACILLIN/TAZOBACTAM 3.375 GM in IV NORMAL SALINE 50ML 50 ML IV SCH ×3 (09:51→20:57)
[2018-10-18] MEDS ORDERED: NEOSTIGMINE METHYLSULFATE 5 MG/5 ML SYRINGE. ONE (10:01)
[2018-10-18] MEDS ORDERED: ONDANSETRON PF 4 MG/2 ML VIAL. ONE (10:01)
[2018-10-18] MEDS ORDERED: GLYCOPYRROLATE 1 MG/5 ML VIAL. ONE (10:02)
--- NOTE | 2018-10-18 10:33 | RAD ---
Intraoperative cholangiogram, 10/18/2018: HISTORY: Cholecystectomy 4 spot films from surgery are presented for review. Contrast has been injected into the cystic duct remnant. 0.26 minutes of fluoroscopy time was utilized. There is good flow contrast into the duodenum at the ampulla. No filling defect is seen in the common duct to suggest a retained calculus. The visualized intrahepatic ducts are unremarkable. IMPRESSION: No significant abnormality is detected. Electronically signed by: Nick Amaya MD (10/18/2018 10:31 AM) [facility]
[2018-10-18] MEDS ORDERED: oxyCODONE/APAP 5/325 1 TAB TABLET PO PRN (11:00)
--- NOTE | 2018-10-18 11:02 | PDOC4 ---
Operative Note Operative Note Operative Note: Preoperative Diagnosis: Acute cholecystitis Postoperative Diagnosis: Same Procedure: Laparoscopic cholecystectomy with intraoperative cholangiogram Surgeons: Adan Mercerizer Machine Operator: Natasha CAMERON Anesthesia: Gen. Estimated Blood Loss: 25 mL Specimen: Gallbladder to pathology Drains: None Complications: None Indications: The patient is a 33-year-old female presented to the emergency department with abdominal pain. Her evaluation is consistent with acute cholecystitis. Surgical treatment was offered by means of a laparoscopic cholecystectomy. The risks of surgery were discussed which include bleeding, infection, bile duct injury, bile leak, pain, the potential for additional surgeries or procedures. The patient understands and would like to proceed. Description: The patient was taken to the operating room and laid supine on the operating table. General anesthesia was performed. The abdomen was prepped with ChloraPrep and draped in a standard surgical fashion. A small supraumbilical incision was made with a scalpel. The Veress needle was then inserted and a pneumoperitoneum was then created. A 5 mm trocar was then inserted and the laparoscope was introduced. In the upper midabdomen a 5 mm trocar was inserted and in the right upper quadrant two 5 mm trochars were inserted. The bladder was enlarged and distended with acute inflammatory change consistent with hydrops. We aspirated nearly 100 mL of clear fluid providing gallbladder decompression. The gallbladder was retracted cephalad. The cystic duct was dissected free from surrounding tissues. One clip was placed on the duct near the gallbladder junction. An opening was made in the duct and a cholangiocatheter placed within and secured with a clip. Using contrast dye and fluoroscopy an intraoperative cholangiogram was performed that appeared unremarkable. The clip and catheter were then withdrawn. Three clips were placed on the cystic duct and it was divided. The cystic artery was then identified, dissected free, doubly clipped and divided as well. The gallbladder was then mobilized away from the liver with cautery. The umbilical 5 millimeter trocar was exchanged for an 11 millimeter trocar. The gallbladder was then placed in an endoscopic bag and extracted at the umbilical trocar site. The fascia there was closed with 0 Vicryl sutures. All blood and irrigation fluid was suctioned and hemostasis was good. The remaining ports were removed and the pneumoperitoneum was relieved. The skin incisions were injected with half percent Marcaine with epinephrine, and all were closed using 4-0 Monocryl suture. Steri-Strips and dressings were then applied. The patient tolerated the procedure well and was sent to the recovery room in stable condition. At the end of the case all counts were correct. ELINOR CASEY MD Oct 18, 2018 11:02
[2018-10-18] MEDS: MORPHINE SULFATE 2 MG/ML VIAL. IV PRN ×2 (11:20→11:40)
[2018-10-18] MEDS: IV NORMAL SALINE 1000ML BAG 1,000 ML IV SCH ×3 (12:26→21:06)
--- NOTE | 2018-10-18 14:01 | NUR ---
SW following for discharge planning. Discussed with RN, pt had surgery this morning. Pt is listed as self pay, SW discussed with RN about meeting with pt to give self pay resources, RN advised pt is still very groggy from surgery. 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 DAPHNE will meet with pt when pt is appropriate to be seen.
[2018-10-18] MEDS ORDERED: POTASSIUM CL 40MEQ D5-0.45NACL 1,000 ML IV ONE (17:00)
[2018-10-18] MEDS: oxyCODONE/APAP 5/325 1 TAB TABLET PO PRN (20:57)
[2018-10-19] MEDS: oxyCODONE/APAP 5/325 1 TAB TABLET PO PRN ×4 (00:58→13:29)
[2018-10-19] MEDS: PIPERACILLIN/TAZOBACTAM 3.375 GM in IV NORMAL SALINE 50ML 50 ML IV SCH ×2 (02:02→08:50)
--- NOTE | 2018-10-19 02:37 | NUR ---
Tolerating fluids and turkey sandwiches w/o N/V. Taking Percocet 2 for pain.
[2018-10-19 03:00] VITALS: BP 97/57
[2018-10-19] MEDS: IV NORMAL SALINE 1000ML BAG 1,000 ML IV SCH (03:46)
[2018-10-19 07:00] VITALS: BP 96/54
[2018-10-19] MEDS ORDERED: OXYC1TAB15 PO (09:47)
--- NOTE | 2018-10-19 09:51 | PDOC3 ---
Discharge Summary Visit Information Date of Admission: Oct 18, 2018 Date of Discharge: Oct 19, 2018 Final Diagnosis acute cholecystitis Brief Hospital Course Allergies Allergies Coded Allergies Type Severity Reaction Last Updated Verified No Known Drug Allergies 05/27/18 No Vital Signs Vital Signs Date Time Temp Pulse Resp B/P (MAP) Pulse Ox O2 Delivery O2 Flow Rate FiO2 10/19/18 09:23 Room Air 10/19/18 07:00 98.4 82 16 96/54 (68) 100 98.4 10/18/18 11:20 10.0 Lab Results Laboratory Tests Test 10/18/18 06:42 White Blood Count 7.9 x10^3/uL (4.0-11.0) Red Blood Count 4.14 x10^6/uL (3.50-5.40) Hemoglobin 12.5 g/dL (12.0-15.5) Hematocrit 37.5 % (36.0-47.0) Mean Corpuscular Volume 91 fL (79-100) Mean Corpuscular Hemoglobin 30 pg (25-35) Mean Corpuscular Hemoglobin Concent 33 g/dL (31-37) Red Cell Distribution Width 14.1 % (11.5-14.5) Platelet Count 172 x10^3/uL (140-400) Neutrophils (%) (Auto) 54 % (31-73) Lymphocytes (%) (Auto) 36 % (24-48) Monocytes (%) (Auto) 8 % (0-9) Eosinophils (%) (Auto) 1 % (0-3) Basophils (%) (Auto) 1 % (0-3) Neutrophils # (Auto) 4.3 x10^3uL (1.8-7.7) Lymphocytes # (Auto) 2.8 x10^3/uL (1.0-4.8) Monocytes # (Auto) 0.6 x10^3/uL (0.0-1.1) Eosinophils # (Auto) 0.1 x10^3/uL (0.0-0.7) Basophils # (Auto) 0.1 x10^3/uL (0.0-0.2) Sodium Level 146 mmol/L (136-145) Potassium Level 3.4 mmol/L (3.5-5.1) Chloride Level 109 mmol/L (98-107) Carbon Dioxide Level 28 mmol/L (21-32) Anion Gap 9 (6-14) Blood Urea Nitrogen 13 mg/dL (7-20) Creatinine 0.6 mg/dL (0.6-1.0) Estimated GFR (Cockcroft-Gault) 114.4 BUN/Creatinine Ratio 22 (6-20) Glucose Level 123 mg/dL (70-99) Calcium Level 8.4 mg/dL (8.5-10.1) Total Bilirubin 0.2 mg/dL (0.2-1.0) Aspartate Amino Transf (AST/SGOT) 21 U/L (15-37) Alanine Aminotransferase (ALT/SGPT) 26 U/L (14-59) Alkaline Phosphatase 70 U/L (46-116) Total Protein 6.3 g/dL (6.4-8.2) Albumin 3.4 g/dL (3.4-5.0) Albumin/Globulin Ratio 1.2 (1.0-1.7) Lipase 167 U/L (73-393) Ethyl Alcohol Level < 10 mg/dL (0-10) Brief Hospital Course 33 year old female in who brought in by EMS because of abdominal pain. Patient states she woke at 3 AM because of right sided abdominal pain as a sharp pain with radiation to upper chest and back. Patient rated her pain 10 over 10 and denies nausea and vomiting, diarrhea and constipation, fever and chills, urinary symptom. Patient states she had the same pain in other locations and was told she had gallbladder problems to follow-up with her primary care physician who treated her with hydrocodone. in ER sonogram which was consistent with acute cholecystitis. sx consulted and patient underwent lap choly without complications. pain controlled well. path pending at time of discharge. patient given scripts for pain prior to discharge. she is tolerating a diet and ambulating. she will be discharged today in stable condition. Discharge Information Condition at Discharge: Improved Follow Up: Weeks Disposition/Orders: D/C to Home Scheduled PRN Oxycodone/Apap 5-325 (Percocet 5-325 Mg Tablet ) 1 Each Tablet, 1 TAB PO PRN Q6HRS PRN for PAIN for 5 Days, #20 Ref 0 Prescribed by: TONY PEACOCK MD on 10/19/18 0947 TONY PEACOCK MD Oct 19, 2018 09:51
[2018-10-19 11:00] VITALS: BP 106/52
--- NOTE | 2018-10-19 13:09 | PDOC ---
PROGRESS NOTES Subjective Subjective doing well, ready to go home Objective Objective Vital Signs Date Time Temp Pulse Resp B/P (MAP) Pulse Ox O2 Delivery O2 Flow Rate FiO2 10/19/18 11:00 97.8 80 16 106/52 (70) 99 Room Air 97.8 10/18/18 11:20 10.0 Intake and Output 10/19/18 07:00 Intake Total 3060 ml Output Total 178 ml Balance 2882 ml Intake Oral 1110 ml IV Total 1950 ml Output Urine Total 153 ml Estimated Blood Loss 25 ml # Voids 4 Physical Exam Abdomen: Soft, No tenderness Plan Plan of Care OK to discharge; FU with Dr Casey in 2 weeks in office Comment Review of Relevant I have reviewed the following items carrie (where applicable) has been applied. Labs Laboratory Tests Test 10/18/18 06:42 White Blood Count 7.9 x10^3/uL (4.0-11.0) Red Blood Count 4.14 x10^6/uL (3.50-5.40) Hemoglobin 12.5 g/dL (12.0-15.5) Hematocrit 37.5 % (36.0-47.0) Mean Corpuscular Volume 91 fL (79-100) Mean Corpuscular Hemoglobin 30 pg (25-35) Mean Corpuscular Hemoglobin Concent 33 g/dL (31-37) Red Cell Distribution Width 14.1 % (11.5-14.5) Platelet Count 172 x10^3/uL (140-400) Neutrophils (%) (Auto) 54 % (31-73) Lymphocytes (%) (Auto) 36 % (24-48) Monocytes (%) (Auto) 8 % (0-9) Eosinophils (%) (Auto) 1 % (0-3) Basophils (%) (Auto) 1 % (0-3) Neutrophils # (Auto) 4.3 x10^3uL (1.8-7.7) Lymphocytes # (Auto) 2.8 x10^3/uL (1.0-4.8) Monocytes # (Auto) 0.6 x10^3/uL (0.0-1.1) Eosinophils # (Auto) 0.1 x10^3/uL (0.0-0.7) Basophils # (Auto) 0.1 x10^3/uL (0.0-0.2) Sodium Level 146 mmol/L (136-145) Potassium Level 3.4 mmol/L (3.5-5.1) Chloride Level 109 mmol/L (98-107) Carbon Dioxide Level 28 mmol/L (21-32) Anion Gap 9 (6-14) Blood Urea Nitrogen 13 mg/dL (7-20) Creatinine 0.6 mg/dL (0.6-1.0) Estimated GFR (Cockcroft-Gault) 114.4 BUN/Creatinine Ratio 22 (6-20) Glucose Level 123 mg/dL (70-99) Calcium Level 8.4 mg/dL (8.5-10.1) Total Bilirubin 0.2 mg/dL (0.2-1.0) Aspartate Amino Transf (AST/SGOT) 21 U/L (15-37) Alanine Aminotransferase (ALT/SGPT) 26 U/L (14-59) Alkaline Phosphatase 70 U/L (46-116) Total Protein 6.3 g/dL (6.4-8.2) Albumin 3.4 g/dL (3.4-5.0) Albumin/Globulin Ratio 1.2 (1.0-1.7) Lipase 167 U/L (73-393) Ethyl Alcohol Level < 10 mg/dL (0-10) Medications Current Medications Sodium Chloride 1,000 ml @ 1,000 mls/hr Q1H IV Last administered on 10/18/18at 06:46; Start 10/18/18 at 07:00; Stop 10/18/18 at 07:59; Status DC Ketorolac Tromethamine (Toradol 30mg Vial) 30 mg 1X ONCE IV Last administered on 10/18/18at 06:45; Start 10/18/18 at 07:00; Stop 10/18/18 at 07:01; Status DC Fentanyl Citrate (Fentanyl 2ml Vial) 50 mcg 1X ONCE IV Last administered on at 07:21; Start 10/18/18 at 07:00; Stop 10/18/18 at 07:01; Status DC Ondansetron HCl (Zofran) 4 mg 1X ONCE IV Last administered on 10/18/18at 07:17 ; Start 10/18/18 at 07:00; Stop 10/18/18 at 07:01; Status DC Piperacillin Sod/ Tazobactam Sod 3.375 gm/Sodium Chloride 50 ml @ 100 mls/hr Q6H IV Last administered on 10/19/18at 08:50; Start 10/18/18 at 08:00 Sodium Chloride 1,000 ml @ 150 mls/hr Q6H40M IV Last administered on at 14:53; Start 10/18/18 at 07:46; Stop 10/19/18 at 07:39; Status DC Propofol 20 ml @ As Directed STK-MED ONCE IV ; Start 10/18/18 at 08:01; Stop at 08:02; Status DC Lidocaine HCl (Lidocaine Pf 2% Vial) 5 ml STK-MED ONCE .ROUTE ; Start 10/18/18 at 08:01; Stop 10/18/18 at 08:02; Status DC Rocuronium [place] (Zemuron) 50 mg STK-MED ONCE .ROUTE ; Start 10/18/18 at 08:01 ; Stop 10/18/18 at 08:02; Status DC Fentanyl Citrate (Fentanyl 2ml Vial) 100 mcg STK-MED ONCE .ROUTE ; Start at 08:01; Stop 10/18/18 at 08:02; Status DC Ondansetron HCl (Zofran) 4 mg PRN Q6HRS PRN IV NAUSEA/VOMITING; Start 10/18/18 at 08:45; Stop 10/19/18 at 08:44; Status DC Fentanyl Citrate (Fentanyl 2ml Vial) 25 mcg PRN Q5MIN PRN IV MILD PAIN; Start 10/18/18 at 08:45; Stop 10/19/18 at 08:44; Status DC Fentanyl Citrate (Fentanyl 2ml Vial) 50 mcg PRN Q5MIN PRN IV MODERATE TO SEVERE PAIN Last administered on 10/18/18at 11:28; Start 10/18/18 at 08:45; Stop 10/19/18 at 08:44; Status DC Morphine Sulfate (Morphine Sulfate) 1 mg PRN Q10MIN PRN IV SEVERE PAIN Last administered on 10/18/18at 11:40; Start 10/18/18 at 08:45; Stop 10/19/18 at 08:44 ; Status DC Ringer's Solution 1,000 ml @ 30 mls/hr Q24H IV Last administered on 10/18/18at 08:41; Start 10/18/18 at 08:35; Stop 10/18/18 at 20:34; Status DC Lidocaine HCl (Xylocaine-Mpf 1% 2ml Vial) 2 ml 1X PRN PRN ID IV START; Start at 08:45; Stop 10/19/18 at 08:44; Status DC Hydromorphone HCl (Dilaudid) 0.5 mg PRN Q10MIN PRN IV SEV PAIN, Second choice; Start 10/18/18 at 08:45; Stop 10/19/18 at 08:44; Status DC Prochlorperazine Edisylate (Compazine) 5 mg PACU PRN PRN IV NAUSEA, MRX1 Last administered on 10/18/18at 11:18; Start 10/18/18 at 08:45; Stop 10/19/18 at 08:44 ; Status DC Fentanyl Citrate (Fentanyl 2ml Vial) 100 mcg STK-MED ONCE .ROUTE ; Start at 08:44; Stop 10/18/18 at 08:45; Status DC Bupivacaine HCl/ Epinephrine Bitart (Sensorcain-Mpf Epi 0.5%-1:389927) 30 ml STK -MED ONCE .ROUTE Last administered on 10/18/18at 10:07; Start 10/18/18 at 08:25 ; Stop 10/18/18 at 09:25; Status DC Iohexol (Omnipaque 300 Mg/ml) 100 ml STK-MED ONCE .ROUTE Last administered on at 10:12; Start 10/18/18 at 08:25; Stop 10/18/18 at 09:25; Status DC Cellulose (Surgicel Hemostat 4x8) 1 each STK-MED ONCE .ROUTE ; Start 10/18/18 at 08:25; Stop 10/18/18 at 09:25; Status DC Dexamethasone Sodium Phosphate (Decadron) 20 mg STK-MED ONCE .ROUTE ; Start at 09:50; Stop 10/18/18 at 09:51; Status DC Desflurane (Suprane) 30 ml STK-MED ONCE IH ; Start 10/18/18 at 09:50; Stop 10/18 at 09:51; Status DC Ondansetron HCl (Zofran) 4 mg STK-MED ONCE .ROUTE ; Start 10/18/18 at 10:01; Stop 10/18/18 at 10:02; Status DC Neostigmine Methylsulfate (Neostigmine Methylsulfate) 5 mg STK-MED ONCE .ROUTE ; Start 10/18/18 at 10:01; Stop 10/18/18 at 10:02; Status DC Glycopyrrolate (Robinul) 1 mg STK-MED ONCE .ROUTE ; Start 10/18/18 at 10:02; Stop 10/18/18 at 10:03; Status DC Oxycodone/ Acetaminophen (Percocet 5/325) 1 tab PRN Q4HRS PRN PO PAIN Last administered on 10/18/18at 16:02; Start 10/18/18 at 11:00 Oxycodone/ Acetaminophen (Percocet 5/325) 2 tab PRN Q4HRS PRN PO PAIN Last administered on 10/19/18at 09:23; Start 10/18/18 at 11:15 Potassium Chloride/Dextrose/ Sod Cl 1,000 ml @ 80 mls/hr 1X ONCE IV Last administered on 10/18/18at 17:24; Start 10/18/18 at 17:00; Stop 10/19/18 at 05:29 ; Status DC Active Scripts Active Percocet 5-325 Mg Tablet (Oxycodone/Acetaminophen) 1 Each Tablet 1 Tab PO PRN Q6HRS PRN 5 Days Vitals/I & O Vital Sign - Last 24 Hours 10/18/18 10/18/18 10/18/18 10/18/18 13:15 13:45 15:15 16:02 Pulse 64 65 59 B/P (MAP) 120/70 (87) 111/67 (82) 126/78 (94) Pulse Ox 98 98 99 O2 Delivery Room Air Room Air Room Air Room Air 10/18/18 10/18/18 10/18/18 10/18/18 16:31 17:02 19:25 20:57 Temp 98.4 98.4 Pulse 84 Resp 18 16 B/P (MAP) 123/73 (90) Pulse Ox 98 O2 Delivery Room Air Room Air Room Air Room Air 10/18/18 10/19/18 10/19/18 10/19/18 23:36 00:58 02:00 03:00 Temp 98.4 98.4 98.4 98.4 Pulse 74 87 Resp 18 20 20 18 B/P (MAP) 93/66 (75) 97/57 (70) Pulse Ox 98 99 O2 Delivery Room Air Room Air Room Air 10/19/18 10/19/18 10/19/18 10/19/18 05:13 07:00 08:15 09:23 Temp 98.4 98.4 Pulse 82 Resp 20 16 B/P (MAP) 96/54 (68) Pulse Ox 100 O2 Delivery Room Air Room Air Room Air Room Air 10/19/18 10/19/18 10:23 11:00 Temp 97.8 97.8 Pulse 80 Resp 16 B/P (MAP) 106/52 (70) Pulse Ox 99 O2 Delivery Room Air Room Air Intake and Output 10/18/18 10/18/18 10/19/18 15:00 23:00 07:00 Intake Total 2000 ml 580 ml 480 ml Output Total 175 ml 3 ml Balance 1825 ml 580 ml 477 ml ELINOR CASEY MD Oct 19, 2018 13:09
--- NOTE | 2018-10-19 13:25 | NUR ---
SW following for discharge planning. Discussed with RN, pt possibly discharging today. Lesley ([facility]) completed medicaid application with pt. No further SW needs.
--- NOTE | 2018-10-19 14:10 | NUR ---
Pt discharged home with no additional services, ambulated to hospital entrance, going home by [facility] transport. Education and information about Dx provided to Pt who verbalized understanding and had no further questions. No changes from previous assessment.
--- NOTE | 2018-10-19 17:07 | PATHOLOGY ---
[facility] Accession Number: [id number] . 01 Material submitted: . gallbladder - GALLBLADDER . 01 Clinical history: . Acute cholelithiasis . 02 Diagnosis: Gallbladder, laparoscopic cholecystectomy: - Cholelithiasis. - Chronic cholecystitis. . (JP:mm; 10/19/2018) [facility]/10/19/2018 . 02 Comment: There is no evidence of malignancy. . (JPM:mm; 10/19/2018) . 02 Electronically signed: . Pato Herbert MD, Pathologist NPI- [id number] . 01 Gross description: . The specimen is received in formalin, labeled "Gypsy Banegas, gallbladder", is a previously opened gallbladder measuring 12.6 x 4.0 with an average 0.1 cm wall. The serosa is glistening, beltrán-purple. The cystic duct region and gallbladder neck is impacted by 2 bosselated, yellow-green calculi. This region is dilated with effaced mucosa and thin wall. The remaining mucosa is beltrán-brown, granular and the wall has an average thickness of 0.1 cm. No discrete masses are identified. The 2 calculi within the gallbladder and several fragments within the container measures 3.4 x 2.6 x 1.7 cm in aggregate. Prepress Manager tissue is submitted in A1. ([facility]; 10/18/2018) [facility] . 02 Pathologist provided ICD-10: K80.10 . 02 CPT . 250450 Specimen Comment: A courtesy copy of this report has been sent to Specimen Comment: [phone], , , . Specimen Comment: Report sent to ,DR RAYMUNDO,DR DYKES / DR MONDRAGON Performed at: 01 [facility] [address], [place], [place] [id number] MD Richard Neves MD Phone: [phone] Performed at: 02 [facility] [address] [place], [place] [id number] MD Pato Herbert MD Phone: [phone]
== END 2018-10-19 14:10 | disposition home or self-care (01) | DRG 418 ==
LOC: ER 05:42 → 4 NORTH 06:55
PROVIDERS: ADMIT Internal Medicine; ATTEND Internal Medicine
PROC: BF101ZZ Fluoroscopy of Bile Ducts using Low Osmolar Contrast (ICD-10-PCS; 2018-10-18)
PROC: 0FT44ZZ Resection of Gallbladder, Percutaneous Endoscopic Approach (ICD-10-PCS; principal; 2018-10-18 09:00)
DX: K81.0 Acute cholecystitis (principal); K82.1 Hydrops of gallbladder; E87.6 Hypokalemia; F41.9 Anxiety disorder, unspecified; M54.5 Low back pain; Z87.891 Personal history of nicotine dependence; Z90.710 Acquired absence of both cervix and uterus; Z79.899 Other long term (current) drug therapy; Z98.51 Tubal ligation status; Z82.49 Family history of ischemic heart disease and other diseases of the circulatory system
CPT/HCPCS: 36415; 74300; 76705; 80053; 83690; 85025; 88304; 96361; 96374; A7015; G0480; J0780; J1100; J1885; J2001; J2270; J2405; J2543; J2704; J2710; J3010; J3490; J7030; J7042; J7120; Q9967; 99285-25

== ENCOUNTER 2019-02-21 16:28 | Emergency (ER) | payer SELFPAY ==
[~2019-02-21] VITALS: Ht 154.9 cm; Wt 65.8 kg
[~2019-02-21 16:28] MED LIST: OXYC1TAB15 PO
[2019-02-21 16:34] VITALS: BP 145/102
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
[2019-02-21] MEDS ORDERED: NAPR500T8 PO (17:39)
[2019-02-21] MEDS ORDERED: CYCL10TA2 PO (17:39)
== END 2019-02-21 17:45 | disposition home or self-care (01) ==
LOC: ER 16:28
DX: S20.211A Contusion of right front wall of thorax, initial encounter (principal); F17.200 Nicotine dependence, unspecified, uncomplicated; Y08.89XA Assault by other specified means, initial encounter; Y93.89 Activity, other specified; Y92.89 Other specified places as the place of occurrence of the external cause; Y99.8 Other external cause status
CPT/HCPCS: 71101; 99284

== ENCOUNTER 2019-07-14 08:26 | Emergency (ER) | payer SELFPAY ==
[~2019-07-14 08:26] MED LIST changes: +CYCL10TA2 PO; +NAPR500T8 PO
== END 2019-07-14 09:00 | disposition left against medical advice (07) ==
LOC: ER 08:26
DX: R10.9 Unspecified abdominal pain (principal); Z53.21 Procedure and treatment not carried out due to patient leaving prior to being seen by health care provider